=== PATIENT | male | born 1970 | race Caucasian/White ===

== ENCOUNTER 2021-07-22 22:10 | Emergency (ER) | payer MEDICAID, SELFPAY ==
[2021-07-22 22:19] VITALS: BP 133/90; PULSE 106; RESP 18; TEMP 36.8; O2SAT 96
[2021-07-22 22:20] VITALS: BP 133/90; PULSE 108; RESP 16; TEMP 36.8; O2SAT 96
--- NOTE | 2021-07-22 22:28 | PC.NURSE ---
PT TO ROOM VIA AMBULANCE REQUESTING DETOX. PT ARRIVES ALERT, RESPIRATIONS EASY, N/L. SKIN W/D. PA IN ROOM FOR EVAL.
[2021-07-22] MEDS: LORazepam 1 MG TABLET 2 MG PO (22:47)
--- NOTE | 2021-07-22 22:48 | ED_ITS ---
HPI - Alcohol General Chief Complaint: ETOH/Substance Use Time Seen by Provider: 07/22/21 22:30 Source: patient and EMS Mode of arrival: EMS Limitations: no limitations History of Present Illness HPI narrative: 50-year-old male with a history of DVT on Eliquis, hypertension, alcohol abuse here with complaints of seeking detox. Patient tells me he drinks about a bottle of vodka daily. His last drink was just prior to arrival. He is looking for detox today. He has no physical complaints. He denies suicidal homicidal ideations. No additional substance use. Patient tells me that he was seen twice at [facility] the last 24 hours. Related Data Allergies Allergy/AdvReac Type Severity Reaction Status Date / Time bee pollen [BEE STINGS] Allergy Severe Anaphylactic Unverified 05/03/20 19:53 shock bupropion [From WELLBUTRIN] Allergy Severe Anaphylactic Unverified 05/03/20 19:53 shock red dye [RED DYE] Allergy Unknown Unknown Unverified 05/03/20 19:53 Review of Systems Review of Systems: Yes all other systems are reviewed and are negative Constitutional: Constitutional: Reports no additional constitutional complaints, Denies body ache(s), Denies chills, Denies fever(s), Denies hea dache(s) and Denies weakness Eyes: Eyes: Reports no additional eye complaints and Denies change in vision ENT: Reports system reviewed and no additional complaints, except as documented, Denies dizziness, Denies headache(s), Denies nasal congestion, Denies nasal discharge and Denies neck pain Cardiovascular: Cardiovascular: Reports no additional cardiovascular complaints, Denies chest pain, Denies leg edema and Denies dyspnea Respiratory: Respiratory: Reports no additional respiratory complaints, Denies cough and Denies dyspnea Gastrointestinal: Gastrointestinal: Reports no additional gastrointestinal complaints, Denies abdominal pain, Denies diarrhea, Denies nausea and Denies vomiting Genitourinary: Genitourinary: Denies urinary incontinence Musculoskeletal: Musculoskeletal: Reports no additional musculoskeletal complaints, Denies back pain, Denies arthralgias, Denies joint swelling, Denies neck pain, Denies numbness and Denies tingling Integumentary/Breasts: Skin/Breast: Reports system reviewed and no additional complaints, except as docu and Denies rash Neurologic: Reports system reviewed and no additional complaints, except as documented, Denies Abnormal speech present, Denies dizziness, Denies headache(s), Denies numbness, Denies tingling and Denies weakness PMFSH Past Medical History Attestation statement: The following information was validated with the patient. Source: old records reviewed and nursing notes reviewed Social History Social History Advance Directives: No Advance Directives Information Provided: No Physical Exam Vital Signs: Vital Signs: Last Vital Signs Temp 98.4 F 07/23/21 00:00 Pulse 101 H 07/23/21 00:00 Resp 16 07/23/21 00:00 BP 124/86 07/23/21 00:00 Pulse Ox 94 07/23/21 00:00 BMI result Body Mass Index 20.0 Const: General: cooperative, healthy appearing, comfortable and no acute distress Orientation/consciousness: patient oriented x3 Limitations: no limitations HENMT: Head: Yes normal to inspection Ears: hearing grossly normal bilaterally General nose exam: Normal external nose present Face and sinus: Yes normal facial exam Mouth: Normal oral and palatal mucosa present Throat: Yes posterior oropharynx normal Eyes: General: appearance normal, both eyes and all related structures Pupils: Equal, round and reactive pupils present Neck: Neck: Yes normal visual inspection Chest: Chest palpation & inspection: normal inspection of the chest Resp: Effort & Inspection: normal respiratory effort Auscultation: clear to auscultation bilaterally Cardio: Rate: regular rate Rhythm: regular rhythm Peripheral pulses: Peripheral pulses 2+ throughout GI: Inspection: Yes normal to inspection Palpation (GI): Soft to palpation and nontender Auscultation: normal bowel sounds Back/Spine/Pelvis: Thoracic/Lumbar Spine: thoracic and lumbar spine normal to inspection Skin: General skin exam: no rashes or lesions noted Neuro: General: patient oriented x3, no focal motor deficits and normal sensation to monofilament Cranial nerves: Yes Equal, round and reactive pupils present Cognition (Neuro): normal cognition Speech: No Abnormal speech present Gait exam (Neuro): Normal gait present Motor exam (neuro): 5/5 motor strength present throughout Extrem: General: Yes normal to inspection Course Course Course Narrative: 50 yo male here seeking detox from alcohol. No SI or physical complaints. Will check alcohol level, drug screen, obtain a care team evaluation. 0115-placed in position observation pending disposition. Patient was briefly seen by care team and due to BAL plan for assessment in the morning. 0200-Sign out to Jenny Salvador MD pending disposition. If patient wants to leave he can as long as he is clinically sober. MDM - Alcohol Medical Records Attestation: I reviewed the patient's medical records. Lab Data Attestation: I reviewed the patient's lab results. Labs: Lab Results 07/22/21 07/22/21 07/22/21 Range/Units 22:56 22:56 22:56 Urine Opiates Screen POSITIVE H (Not Detect) Urine Fentanyl Screen Not Detected (Not Detect) Ur Barbiturates Screen POSITIVE H (Not Detect) Ur Phencyclidine Scrn Not Detected (Not Detect) Ur Amphetamines Screen Not Detected (Not Detect) U Benzodiazepines Scrn Not Detected (Not Detect) Urine Cocaine Screen Not Detected (Not Detect) U Marijuana (THC) Screen Not Detected (Not Detect) Ethyl Alcohol 387 H* mg/dL COVID-19 (KALIE) Negative (Negative) COVID-19 Clin Com See Note Discharge Plan Discharge Clinical Impression: Alcoholic intoxication
[2021-07-22 23:28] LABS: COVID-19 Test Negative (Negative); IDNOW Serial# 9DD0AD1C
[2021-07-22 23:31] LABS: Ethanol 387 mg/dL
[2021-07-22 23:34] LABS: Amphetamine Screen Urine Not Detected (Not Detect); Barbiturates, Urine POSITIVE (Not Detect); Benzodiazepines Screen Urine Not Detected (Not Detect); Cannabinoid Screen Urine Not Detected (Not Detect); Cocaine Screen Urine Not Detected (Not Detect); Fentanyl, urine Not Detected (Not Detect); Opiate Screen Urine POSITIVE (Not Detect); Phencyclidine Screen Urine Not Detected (Not Detect)
[2021-07-22] MEDS: Magnesium Hydrox/Alum Hydrox 30 ML ORAL.SUSP PO (23:35)
[2021-07-22] MEDS: Lidocaine HCl Viscous 2 % 15 ML SOLUTION MUCOUS MEM (23:36)
--- NOTE | 2021-07-22 23:40 | PC.NURSE ---
labs drawn to lab. Pt up to restroom with steady even gait to restroom. pt c/o gastric pain and rating pain /10. pt medicated as per emar for abd pain. pt fell to sleep in stretcher.
[2021-07-23] VITALS: BP 124/86; PULSE 101; RESP 16; TEMP 36.9; O2SAT 94
--- NOTE | 2021-07-23 | ECG_ITS ---
Test Reason : ETOH Blood Pressure : / mmHG Vent. Rate : 116 BPM Atrial Rate : 116 BPM P-R Int : 164 ms QRS Dur : 086 ms QT Int : 346 ms P-R-T Axes : 056 -59 060 degrees QTc Int : 480 ms Sinus tachycardia Left axis deviation Low voltage QRS Abnormal ECG No previous ECGs available Referred By: Manuela Recio Electronically Signed By:Enoch Jasmine
--- NOTE | 2021-07-23 00:53 | PC.NURSE ---
PT SLEEPING, WAKES TO VOICE. RESPIRATIONS EASY, N/L. SKIN W/D. WILL CONTINUE TO MONITOR PT.
--- NOTE | 2021-07-23 01:17 | MHC.CARE ---
CARE team consult received for pt who arrived to ED seeking detox for alcohol dependence. BAL was 387 ~11pm. This telegraphic typewriter mechanic attempted to meet with pt to discuss treatment, however he was sleeping soundly and did not rouse to voice. Recovery team will meet with pt in the morning if he is still in the ED.
[2021-07-23 02:00] VITALS: RESP 16
--- NOTE | 2021-07-23 03:13 | PC.NURSE ---
PT WAKES TO VOICE, RESPIRATIONS NON-LABORED. PT DENIES COMPLAINTS, RESPIRATIONS EASY, N/L. WILL CONTINUE TO MONITOR PT.
[2021-07-23 04:00] VITALS: RESP 16
--- NOTE | 2021-07-23 04:23 | PC.NURSE ---
PT SLEEPING IN STRETCHER, RESPIRATIONS EASY, N/L. SKIN WARM, DRY. PT AWAITING FOR DISPO IN THE MORNING.
--- NOTE | 2021-07-23 04:51 | PC.NURSE ---
PT DESATS INTO THE 70'S MD AWARE AND PT ON 2L NC WITH PO 99%
[2021-07-23 05:53] VITALS: BP 92/58; PULSE 109; RESP 16; TEMP 36.8; O2SAT 97
--- NOTE | 2021-07-23 07:33 | PHA.MEDREC ---
Pharmacy Consult ? Medication Reconciliation Pharmacy has completed the medication reconciliation.
--- NOTE | 2021-07-23 07:37 | PC.NURSE ---
pt up with a steady gait. requesting numbers for detox. pt given paper with the information. Notified pt that care team consult is in to see him about dispo.
--- NOTE | 2021-07-23 09:09 | PC.NURSE ---
labs and ekg to be obtained and faxed to [facility].
[2021-07-23 09:40] LABS: MANUAL DIFF FLAG NO
[2021-07-23 09:43] LABS: Basophils Absolute Auto 0.1 X10*3/uL (0.0-0.2); Eosinophils Absolute Auto 0.3 X10*3/uL (0.0-0.4); Eosinophils Percent Auto 4.2 % (0-4); Hematocrit 33.8 % (42.0-52.0); Hemoglobin 11.6 g/dl (14.0-18.0); Imm Gran Abs Auto 0.01 X10*3/uL (0.00-0.03); Imm Gran Pct Auto 0.2 % (0.0-0.4); Lymphocytes Absolute Auto 1.6 X10*3/uL (1.2-4.9); Lymphocytes Percent Auto 26.6 % (20-40); Mean Corpuscular HGB Conc 34.3 g/dl (31.0-36.0); Mean Corpuscular Hemoglobin 36.6 pg (27.0-33.0); Mean Corpuscular Volume 106.6 fL (80.0-98.0); Mean Platelet Volume 8.8 fL (9.4-12.4); Monocytes Absolute Auto 0.9 X10*3/uL (0.1-1.2); Monocytes Percent Auto 13.8 % (2-11); Neutrophils Absolute Auto 3.4 x10*3/uL (2.0-8.3); Neutrophils Percent Auto 54.2 % (45-73); Platelet Count 270 X10*3/uL (160-400); Red Blood Count 3.17 X10*6/uL (4.60-5.80); Red Cell Distribution Width 14.4 % (11.0-16.0); White Blood Count 6.2 X10*3/uL (4.8-10.8)
[2021-07-23 09:57] LABS: Alanine Aminotransferase 25 U/L (0-40); Albumin Level 3.4 g/dL (3.5-5.0); Alkaline Phosphatase 135 U/L (39-117); Anion Gap 18 (12-20); Aspartate Amino Transferase 74 U/L (5-37); Bilirubin Total 0.5 mg/dL (0.0-1.0); Blood Urea Nitrogen 5 mg/dL (9-16); Calcium 7.9 mg/dL (8.4-10.2); Carbon Dioxide 23 mmol/L (22-29); Chloride 108 mmol/L (96-108); Estimated Glomerular Filt Rate > 60; Glucose Random 115 mg/dL (60-115); Potassium 3.6 mmol/L (3.3-5.1); Sodium 145 mmol/L (135-145); Total Protein 5.8 g/dL (6.5-8.0)
[2021-07-23 11:00] VITALS: BP 120/92; PULSE 110
[2021-07-23] MEDS: Metoprolol Tartrate 25 MG TABLET PO (11:00)
[2021-07-23] MEDS: Apixaban 5 MG TABLET PO (11:00)
[2021-07-23] MEDS: Gabapentin 300 MG CAPSULE PO (11:00)
[2021-07-23 11:01] VITALS: BP 120/90; PULSE 110; RESP 20; O2SAT 95
[2021-07-23] MEDS: Omeprazole 20 MG CAPSULE.DR PO (11:18)
== END 2021-07-23 14:11 | disposition other institution (70) ==
PROVIDERS: Nurse Practitioner Family; Physician Assistant Medical; Emergency Provider Emergency Medicine Emergency Medical Services
DX: F10.220 Alcohol dependence with intoxication, uncomplicated (principal); Y90.8 Blood alcohol level of 240 mg/100 ml or more; Z20.822 Contact with and (suspected) exposure to COVID-19; I10 Essential (primary) hypertension; Z86.718 Personal history of other venous thrombosis and embolism; Z79.01 Long term (current) use of anticoagulants
CPT/HCPCS: 36415; 80053; 80307; 82077; 85025; 87635; 93005; 99284; 99285

== ENCOUNTER 2022-02-06 17:41 | Inpatient (IN) | payer OTHER, SELFPAY ==
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
[2022-02-06] MEDS: Acetaminophen 325 MG TABLET 650 MG PO (19:11)
[2022-02-06 21:00] VITALS: BP 117/86; PULSE 137; RESP 14; TEMP 36.5; O2SAT 98
[2022-02-06 21:16] VITALS: BP 117/86; PULSE 137; RESP 16; TEMP 36.5
[2022-02-06] MEDS: Thiamine HCL 100 MG TABLET 50 MG PO (21:21)
[2022-02-06] MEDS: Cyclobenzaprine HCl 10 MG TABLET PO (21:22)
[2022-02-06] MEDS: Metoprolol Tartrate 25 MG TABLET PO (21:22)
[2022-02-06] MEDS: Gabapentin 300 MG CAPSULE PO (21:22)
[2022-02-06] MEDS: QUEtiapine Fumarate 100 MG TABLET PO (21:22)
[2022-02-06] MEDS: Folic Acid 1 MG TABLET PO (21:23)
[2022-02-06] MEDS: LORazepam 1 MG TABLET 2 MG PO (21:23)
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
[2022-02-07] MEDS: Acetaminophen 325 MG TABLET 650 MG PO ×2 (06:10→16:36)
[2022-02-07] MEDS: hydrOXYzine HCL 25 MG TABLET PO (06:10)
[2022-02-07 09:00] VITALS: BP 115/81; TEMP 36.6
[2022-02-07 09:34] LABS: Estimated Average Glucose 103 mg/dL; Hemoglobin A1c % 5.2 %
[2022-02-07 10:14] LABS: Alanine Aminotransferase 40 U/L (0-40); Albumin Level 4.4 g/dL (3.5-5.0); Alkaline Phosphatase 139 U/L (39-117); Anion Gap 16 (12-20); Aspartate Amino Transferase 76 U/L (5-37); Bilirubin Direct 0.4 mg/dL (0.0-0.5); Bilirubin Total 0.8 mg/dL (0.0-1.0); Blood Urea Nitrogen 12 mg/dL (9-16); Calcium 9.7 mg/dL (8.4-10.2); Carbon Dioxide 28 mmol/L (22-29); Chloride 98 mmol/L (96-108); Cholesterol 181 mg/dL; Estimated Glomerular Filt Rate > 60; Glucose Fasting 127 mg/dL (60-99); HDL Cholesterol 87 mg/dL; LDL Cholesterol Calculated 83 mg/dl; Magnesium 1.4 mg/dL (1.6-2.6); Potassium 4.8 mmol/L (3.3-5.1); Sodium 137 mmol/L (135-145); Total Protein 7.2 g/dL (6.5-8.0); Triglycerides 59 mg/dL
--- NOTE | 2022-02-07 10:18 | PC.NURSE ---
While in restraints pt continued to scream. Yelling that staff should take her out of restraints so she could bash her head in , or just yelling out. Pt talked with staff and provider, did not calm down. Provider deciding pt needing to remain in restraints. Pt received more IM medication, and at this point began to calm down.
[2022-02-07] MEDS: Thiamine HCL 100 MG TABLET 50 MG PO (10:20)
[2022-02-07] MEDS: Pyridoxine HCl (Vitamin B6) 50 MG TABLET 25 MG PO (10:20)
[2022-02-07] MEDS: Gabapentin 300 MG CAPSULE PO ×2 (10:21→14:43)
[2022-02-07] MEDS: Metoprolol Tartrate 25 MG TABLET PO ×2 (10:21→20:25)
[2022-02-07] MEDS: QUEtiapine Fumarate 100 MG TABLET PO ×2 (10:21→20:25)
[2022-02-07] MEDS: Folic Acid 1 MG TABLET PO (10:22)
[2022-02-07 10:31] LABS: Free T4 (Free Thyroxine) 0.89 ng/dL (0.71-1.85)
[2022-02-07] MEDS: Magnesium Oxide 400 MG TABLET PO (10:38)
[2022-02-07] MEDS: LORazepam 1 MG TABLET 2 MG PO ×3 (10:38→16:42)
[2022-02-07 11:34] LABS: Folate 16.6 ng/mL (> or = 4.0); Vitamin B12 298 pg/mL (200-900)
[2022-02-07] MEDS: Nicotine 21 MG PATCH.TD24 TRANSDERMA (11:50)
[2022-02-07 16:27] VITALS: BP 131/84; PULSE 120; RESP 16; TEMP 37; O2SAT 98
[2022-02-07] MEDS: LORazepam 1 MG TABLET PO ×2 (16:36→20:27)
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
[2022-02-07] MEDS: Magnesium Oxide 400 MG TABLET 800 MG PO (16:59)
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
[2022-02-07] MEDS: Cyclobenzaprine HCl 10 MG TABLET PO (20:25)
[2022-02-07] MEDS: Gabapentin 300 MG CAPSULE 600 MG PO (20:25)
[2022-02-07] MEDS: lamoTRIgine 25 MG TABLET PO (20:27)
[2022-02-08 06:00] VITALS: BP 118/76; PULSE 111
[2022-02-08 08:08] LABS: Anion Gap 12 (12-20); Blood Urea Nitrogen 10 mg/dL (9-16); Calcium 9.4 mg/dL (8.4-10.2); Carbon Dioxide 29 mmol/L (22-29); Chloride 103 mmol/L (96-108); Estimated Glomerular Filt Rate > 60; Glucose Random 126 mg/dL (60-115); Magnesium 1.5 mg/dL (1.6-2.6); Potassium 4.3 mmol/L (3.3-5.1); Sodium 140 mmol/L (135-145)
[2022-02-08] MEDS: Gabapentin 300 MG CAPSULE 600 MG PO ×3 (08:09→21:14)
[2022-02-08] MEDS: Multivitamin TABLET 1 TAB PO (08:09)
[2022-02-08] MEDS: Nicotine 21 MG PATCH.TD24 TRANSDERMA (08:09)
[2022-02-08] MEDS: Pyridoxine HCl (Vitamin B6) 50 MG TABLET 25 MG PO (08:09)
[2022-02-08] MEDS: Metoprolol Tartrate 25 MG TABLET PO ×2 (08:09→21:09)
[2022-02-08] MEDS: LORazepam 1 MG TABLET PO ×4 (08:10→21:14)
[2022-02-08] MEDS: Magnesium Oxide 400 MG TABLET PO (08:10)
[2022-02-08] MEDS: Folic Acid 1 MG TABLET PO (08:10)
[2022-02-08] MEDS: Thiamine HCL 100 MG TABLET 50 MG PO (08:10)
[2022-02-08] MEDS: cloNIDine HCL 0.1 MG TABLET PO (08:10)
[2022-02-08] MEDS: QUEtiapine Fumarate 100 MG TABLET PO ×2 (08:10→21:13)
[2022-02-08 15:55] VITALS: BP 103/63; PULSE 125; TEMP 36.6
[2022-02-08] MEDS: LORazepam 1 MG TABLET 2 MG PO (16:03)
[2022-02-08] MEDS: Acetaminophen 325 MG TABLET 650 MG PO (16:03)
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
[2022-02-08] MEDS: Cyclobenzaprine HCl 10 MG TABLET PO (21:13)
[2022-02-08] MEDS: lamoTRIgine 25 MG TABLET PO (21:14)
[2022-02-09 06:00] VITALS: BP 117/85; PULSE 101
[2022-02-09] MEDS: Nicotine 21 MG PATCH.TD24 TRANSDERMA (08:21)
[2022-02-09] MEDS: Metoprolol Tartrate 25 MG TABLET PO ×2 (08:22→21:59)
[2022-02-09] MEDS: Gabapentin 300 MG CAPSULE 600 MG PO ×3 (08:22→21:58)
[2022-02-09] MEDS: QUEtiapine Fumarate 100 MG TABLET PO ×2 (08:22→22:00)
[2022-02-09] MEDS: Multivitamin TABLET 1 TAB PO (08:22)
[2022-02-09] MEDS: Pyridoxine HCl (Vitamin B6) 50 MG TABLET 25 MG PO (08:22)
[2022-02-09] MEDS: Magnesium Oxide 400 MG TABLET PO (08:22)
[2022-02-09] MEDS: Folic Acid 1 MG TABLET PO (08:22)
[2022-02-09] MEDS: Thiamine HCL 100 MG TABLET 50 MG PO (08:23)
[2022-02-09] MEDS: LORazepam 1 MG TABLET PO ×4 (08:24→21:59)
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
[2022-02-09 16:20] VITALS: BP 132/71; PULSE 104; TEMP 37
[2022-02-09] MEDS: Acetaminophen 325 MG TABLET 650 MG PO (17:40)
[2022-02-09] MEDS: Cyclobenzaprine HCl 10 MG TABLET PO (21:58)
[2022-02-09] MEDS: lamoTRIgine 25 MG TABLET PO (21:59)
[2022-02-10 08:12] VITALS: BP 122/79; PULSE 116; TEMP 37.6; O2SAT 98
[2022-02-10] MEDS: Metoprolol Tartrate 25 MG TABLET PO ×2 (08:28→21:07)
[2022-02-10] MEDS: Folic Acid 1 MG TABLET PO (08:29)
[2022-02-10] MEDS: Gabapentin 300 MG CAPSULE 600 MG PO ×3 (08:29→21:07)
[2022-02-10] MEDS: QUEtiapine Fumarate 100 MG TABLET PO ×2 (08:29→21:09)
[2022-02-10] MEDS: Magnesium Oxide 400 MG TABLET PO (08:29)
[2022-02-10] MEDS: Pyridoxine HCl (Vitamin B6) 50 MG TABLET 25 MG PO (08:29)
[2022-02-10] MEDS: LORazepam 1 MG TABLET PO ×4 (08:29→21:07)
[2022-02-10] MEDS: Multivitamin TABLET 1 TAB PO (08:29)
[2022-02-10] MEDS: Thiamine HCL 100 MG TABLET 50 MG PO (08:30)
[2022-02-10] MEDS: Nicotine 21 MG PATCH.TD24 TRANSDERMA (08:32)
[2022-02-10] MEDS: Acetaminophen 325 MG TABLET 650 MG PO ×2 (09:48→17:58)
[2022-02-10] MEDS: LORazepam 1 MG TABLET 2 MG PO (12:06)
[2022-02-10 12:09] LABS: Alanine Aminotransferase 45 U/L (0-40); Albumin Level 3.6 g/dL (3.5-5.0); Alkaline Phosphatase 116 U/L (39-117); Aspartate Amino Transferase 75 U/L (5-37); Bilirubin Direct 0.2 mg/dL (0.0-0.5); Bilirubin Total 0.4 mg/dL (0.0-1.0); Total Protein 6.2 g/dL (6.5-8.0)
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
--- NOTE | 2022-02-10 15:38 | PC.NURSE ---
Pt ambulated the complete hallway x3 with gait belt on and using a walker. Pt reports feeling stronger than previous day. When attempts to walk without walker wee made pt became unsteady with distance. Pt denied pain or discomfort while ambulating.
[2022-02-10 18:00] VITALS: BP 104/79; PULSE 108; TEMP 36.9
[2022-02-10] MEDS: Mirtazapine 7.5 MG TABLET PO (21:08)
[2022-02-10] MEDS: Cyclobenzaprine HCl 10 MG TABLET PO (21:08)
[2022-02-10] MEDS: lamoTRIgine 25 MG TABLET PO (21:08)
[2022-02-10 21:10] VITALS: BP 128/85; PULSE 102; TEMP 37.1
[2022-02-10] MEDS: Magnesium Hydrox/Alum Hydrox 30 ML ORAL.SUSP PO (21:12)
[2022-02-11 08:20] VITALS: BP 118/83; PULSE 114; TEMP 37.4; O2SAT 95
[2022-02-11] MEDS: QUEtiapine Fumarate 100 MG TABLET PO ×2 (08:56→20:44)
[2022-02-11] MEDS: Multivitamin TABLET 1 TAB PO (08:56)
[2022-02-11] MEDS: Folic Acid 1 MG TABLET PO (08:56)
[2022-02-11] MEDS: Nicotine 21 MG PATCH.TD24 TRANSDERMA (08:56)
[2022-02-11] MEDS: Pyridoxine HCl (Vitamin B6) 50 MG TABLET 25 MG PO (08:56)
[2022-02-11] MEDS: Gabapentin 300 MG CAPSULE 600 MG PO ×3 (08:57→20:43)
[2022-02-11] MEDS: LORazepam 1 MG TABLET PO ×4 (08:57→20:44)
[2022-02-11] MEDS: Metoprolol Tartrate 25 MG TABLET PO ×2 (08:57→20:44)
[2022-02-11] MEDS: Thiamine HCL 100 MG TABLET 50 MG PO (08:58)
[2022-02-11] MEDS: Magnesium Oxide 400 MG TABLET PO (09:15)
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
--- NOTE | 2022-02-11 14:46 | PC.NURSE ---
Pt ambulating on the unit in the hallway and kitchen independently with just staff observation. Patients gait was steady, denied weakness or dizziness. Pt removed from 1:1 supervision and placed on 5 minute safety checks.
[2022-02-11 16:00] VITALS: BP 106/81; PULSE 111; RESP 14; TEMP 36.7; O2SAT 99
[2022-02-11] MEDS: Cyclobenzaprine HCl 10 MG TABLET PO (20:43)
[2022-02-11] MEDS: Mirtazapine 15 MG TABLET PO (20:44)
[2022-02-11] MEDS: Mineral Oil/Petrolatum,White 106 GM Tube 1 APPL TOPICAL (21:13)
[2022-02-12 08:11] VITALS: BP 132/86; PULSE 103; TEMP 37.3; O2SAT 97
[2022-02-12] MEDS: Nicotine 21 MG PATCH.TD24 TRANSDERMA (09:05)
[2022-02-12] MEDS: Magnesium Oxide 400 MG TABLET PO (09:05)
[2022-02-12] MEDS: Metoprolol Tartrate 25 MG TABLET PO ×2 (09:06→21:13)
[2022-02-12] MEDS: Acetaminophen 325 MG TABLET 650 MG PO (09:06)
[2022-02-12] MEDS: Pyridoxine HCl (Vitamin B6) 50 MG TABLET 25 MG PO (09:06)
[2022-02-12] MEDS: LORazepam 1 MG TABLET PO ×3 (09:06→21:11)
[2022-02-12] MEDS: Multivitamin TABLET 1 TAB PO (09:06)
[2022-02-12] MEDS: QUEtiapine Fumarate 100 MG TABLET PO ×2 (09:06→21:10)
[2022-02-12] MEDS: Folic Acid 1 MG TABLET PO (09:06)
[2022-02-12] MEDS: Gabapentin 300 MG CAPSULE 600 MG PO ×3 (09:06→21:12)
[2022-02-12] MEDS: Thiamine HCL 100 MG TABLET 50 MG PO (09:06)
[2022-02-12] MEDS: Mineral Oil/Petrolatum,White 106 GM Tube 1 APPL TOPICAL ×2 (09:18→14:22)
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
[2022-02-12 18:00] VITALS: BP 120/81; PULSE 129; TEMP 36.7
[2022-02-12] MEDS: Mirtazapine 30 MG TABLET PO (21:11)
[2022-02-12] MEDS: Cyclobenzaprine HCl 10 MG TABLET PO (21:12)
[2022-02-13] MEDS: Metoprolol Tartrate 25 MG TABLET PO ×2 (09:10→20:06)
[2022-02-13] MEDS: Magnesium Oxide 400 MG TABLET PO (09:10)
[2022-02-13] MEDS: Thiamine HCL 100 MG TABLET 200 MG PO (09:10)
[2022-02-13] MEDS: Multivitamin TABLET 1 TAB PO (09:12)
[2022-02-13] MEDS: Folic Acid 1 MG TABLET PO (09:12)
[2022-02-13] MEDS: Pyridoxine HCl (Vitamin B6) 50 MG TABLET 25 MG PO (09:12)
[2022-02-13] MEDS: Gabapentin 300 MG CAPSULE 600 MG PO ×3 (09:12→20:04)
[2022-02-13] MEDS: QUEtiapine Fumarate 100 MG TABLET PO ×3 (09:12→20:05)
[2022-02-13] MEDS: LORazepam 1 MG TABLET PO ×2 (09:13→20:05)
[2022-02-13 09:17] VITALS: BP 140/93; PULSE 99; TEMP 37.1
[2022-02-13] MEDS: Mineral Oil/Petrolatum,White 106 GM Tube 1 APPL TOPICAL ×2 (09:28→17:42)
[2022-02-13] MEDS: Nicotine 21 MG PATCH.TD24 TRANSDERMA (09:30)
[2022-02-13] MEDS: Acetaminophen 325 MG TABLET 650 MG PO ×2 (09:32→17:42)
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
[2022-02-13 11:26] VITALS: BP 128/75; PULSE 108
[2022-02-13] MEDS: cloNIDine HCL 0.1 MG TABLET PO (11:29)
[2022-02-13] MEDS: Cyclobenzaprine HCl 10 MG TABLET PO (20:05)
[2022-02-13] MEDS: Mirtazapine 30 MG TABLET PO (20:53)
[2022-02-13 20:55] VITALS: BP 113/76; PULSE 101; TEMP 36.6
[2022-02-14 08:37] VITALS: BP 131/81; PULSE 104; RESP 18; TEMP 36.7
[2022-02-14] MEDS: Gabapentin 300 MG CAPSULE 600 MG PO (08:41)
[2022-02-14] MEDS: LORazepam 1 MG TABLET PO (08:41)
[2022-02-14] MEDS: Metoprolol Tartrate 25 MG TABLET PO (08:41)
[2022-02-14] MEDS: Acetaminophen 325 MG TABLET 650 MG PO (08:41)
[2022-02-14] MEDS: QUEtiapine Fumarate 100 MG TABLET PO ×2 (08:42→11:58)
[2022-02-14] MEDS: Folic Acid 1 MG TABLET PO (08:42)
[2022-02-14] MEDS: Thiamine HCL 100 MG TABLET 200 MG PO (08:42)
[2022-02-14] MEDS: Multivitamin TABLET 1 TAB PO (08:42)
[2022-02-14] MEDS: Magnesium Oxide 400 MG TABLET PO (08:42)
[2022-02-14] MEDS: Pyridoxine HCl (Vitamin B6) 50 MG TABLET 25 MG PO (08:42)
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
== END 2022-02-14 12:05 | disposition home or self-care (01) | DRG 751 ==
PROVIDERS: Hospitalist; Registered Nurse; Admitting Provider Psychiatry & Neurology Psychiatry; Visit Provider Psychiatry & Neurology Psychiatry
DX: F33.1 Major depressive disorder, recurrent, moderate (principal); R45.851 Suicidal ideations; R00.0 Tachycardia, unspecified; Z86.718 Personal history of other venous thrombosis and embolism; F17.210 Nicotine dependence, cigarettes, uncomplicated; F10.239 Alcohol dependence with withdrawal, unspecified; F43.12 Post-traumatic stress disorder, chronic; I10 Essential (primary) hypertension; E83.42 Hypomagnesemia; Z71.6 Tobacco abuse counseling; Z79.899 Other long term (current) drug therapy
CPT/HCPCS: 36415; 80048; 80053; 80061; 80076; 82607; 82746; 83036; 83735; 84439; 84443